=== PATIENT | female | born 2000 | race Caucasian/White ===

== ENCOUNTER 2021-11-17 10:27 | Emergency (ER) | payer OTHER ==
[2021-11-17 10:36] VITALS: RESP 18; TEMP 97.7
[2021-11-17] MEDS ORDERED: SODIUM CHLORIDE 0.9% 1,000 ML IV STA (11:06)
[2021-11-17] MEDS ORDERED: KETOROLAC 15 MG/ML 1 ML VIAL IVP STA (11:06)
--- NOTE | 2021-11-17 11:35 | ED ---
General Adult HPI - General Chief complaint: Back Pain/Injury Stated complaint: Back pain, possible kidney stone Time Seen by Provider: 11/17/21 10:46 Source: patient Mode of arrival: ambulatory Limitations: no limitations - History of Present Illness Initial comments: This 21-year-old female presents to the emergency department with left lower back pain that began 1.5 hours ago. Patient states pain came out of nowhere and is throbbing/sharp in nature. Patient states is better when sitting still and worse when she is moving around. Patient states around this time she also had some mild chills and sweats and felt like she had to urinate, however when she tried to go work she was unable to urinate because the back pain was so bad, she began experiencing burning and increase urgency when trying to urinate. Patient denies any this ever happening in her past. Patient states when moving around her pain as 10/10 when she sits still 6/10. Patient states is only located on the left lower side. Patient states she is supposed to start her menstrual cycle tomorrow and does experience some mild back pain with back, however this feels different. Patient does not believe she is at this time. Patient denies any fevers, urinary incontinence/retention, saddle anesthesia or other signs of cauda equina syndrome. Patient denies any trauma to the back which could've caused this left lower back pain. Patient denies any chest pain, short ness of breath, fever, abdominal pain, nausea, vomiting, headache, double/blurred vision, weakness, hemoptysis, hematuria, hematochezia. - Related Data Home Medications Medication Instructions Recorded Confirmed Citalopram Hydrobromide [CeleXA] 20 mg PO DAILY 11/17/21 11/17/21 Norgestimate-Ethinyl Estradiol 1 tab PO DAILY 11/17/21 11/17/21 [Sprintec 28 Day Tablet] Allergies Allergy/AdvReac Type Severity Reaction Status Date / Time No Known Allergies Allergy Verified 11/17/21 10:36 Review of Systems ROS Statement: Those systems with pertinent positive or pertinent negative responses have been documented in the HPI. ROS Other: All systems not noted in ROS Statement are negative. Past Medical History Past Medical History: No Reported History History of Any Multi-Drug Resistant Organisms: None Reported Past Surgical History: No Surgical Hx Reported Past Psychological History: No Psychological Hx Reported Smoking Status: Never smoker Past Alcohol Use History: None Reported Past Drug Use History: None Reported General Exam Limitations: no limitations General appearance: alert, in no apparent distress Head exam: Present: atraumatic, normocephalic, normal inspection Eye exam: Present: normal appearance, PERRL, EOMI. Absent: scleral icterus, conjunctival injection, periorbital swelling ENT exam: Present: normal exam, mucous membranes moist Respiratory exam: Present: normal lung sounds bilaterally. Absent: respiratory distress, wheezes, rales, rhonchi, stridor Cardiovascular Exam: Present: regular rate, normal rhythm, normal heart sounds. Absent: systolic murmur, diastolic murmur, rubs, gallop, clicks GI/Abdominal exam: Present: soft, normal bowel sounds. Absent: distended, tenderness, guarding, rebound, rigid Extremities exam: Present: normal inspection, full ROM, normal capillary refill. Absent: tenderness, pedal edema, joint swelling, calf tenderness Back exam: Present: normal inspection, full ROM (Extreme pain to the left side of her back when sitting up). Absent: CVA tenderness (R), CVA tenderness (L), vertebral tenderness Neurological exam: Present: alert, oriented X3, CN II-XII intact Psychiatric exam: Present: normal affect, normal mood Skin exam: Present: warm, dry, intact, normal color. Absent: rash Course Vital Signs 11/17/21 10:31 Temperature 97.7 F Pulse Rate 87 Respiratory 18 Rate Blood Pressure 125/76 O2 Sat by Pulse 99 Oximetry - Reevaluation(s) Reevaluation #1: 11/17/21 11:42 On reevaluation, patient states she is feeling very anxious due to having a IV p atient states her pain is well-controlled in her back pain is feeling much better, however she feels super anxious. 1 mg Ativan given. 11/17/21 12:12 On reevaluation after patient received Toradol, patient states her pain is significantly improved. After getting Ativan, patient states she's much less anxious 11/17/21 12:48 On reevaluation come patient states she is feeling good. Patient is anxious to get home and is wondering when she is going to be able to leave. 11/17/21 13:15 On evaluation, patient states she is still without any pain. Patient requesting to go home due to her having no symptoms. I did discuss the possibility of kidney stone or musculoskeletal related. Return parameters discussed. Patient agreed to plan. Medical Decision Making - Medical Decision Making This 21-year-old female presents to the emergency Department with left flank pain that began a few hours ago. Labs unremarkable. Urine unremarkable. CT wi thout contrast of abdomen and pelvis impression: 3 mm left lower pole nonobstructing renal calculus. No evidence of hydroureter bilaterally. No right-sided hydronephrosis. Urinary bladder is not distended. After receiving fluids and Toradol, patient states her flank pain has gone away completely. Patient denies any symptoms prior to discharge. I did discuss with patient the possibility of her pain being from a kidney stone or could be musculoskeletal related. Patient instructed to take Motrin as needed and directed for pain relief. Strict return precautions were discussed and patient instructed to return if back pain returns, patient gets fever or any urinary symptoms present health instructed patient to return if she had any bowel/bladder retention, saddle anesthesia or any cauda equina symptoms. Patient instructed to follow up with her primary care provider next 1-2 days, I did provide primary care provider information to the patient. Patient verbally agreed to plan. Patient sent home in stable condition. Case discussed with my attending, Dr. Palumbo. - Lab Data Result diagrams: 11/17/21 11:37 11/17/21 12:27 Lab Results 11/17/21 11/17/21 11/17/21 Range/Units 11:37 11:37 11:37 WBC 9.8 (3.8-10.6) k/uL RBC 4.88 (3.80-5.40) m/uL Hgb 13.8 (11.4-16.0) gm/dL Hct 42.5 (34.0-46.0) % MCV 87.0 (80.0-100.0) fL MCH 28.2 (25.0-35.0) pg MCHC 32.4 (31.0-37.0) g/dL RDW 13.7 (11.5-15.5) % Plt Count 284 (150-450) k/uL MPV 9.6 Neutrophils % 67 % Lymphocytes % 22 % Monocytes % 5 % Eosinophils % 3 % Basophils % 0 % Neutrophils # 6.5 (1.3-7.7) k/uL Lymphocytes # 2.2 (1.0-4.8) k/uL Monocytes # 0.5 (0-1.0) k/uL Eosinophils # 0.3 (0-0.7) k/uL Basophils # 0.0 (0-0.2) k/uL Sodium (137-145) mmol/L Potassium (3.5-5.1) mmol/L Chloride (98-107) mmol/L Carbon Dioxide (22-30) mmol/L Anion Gap mmol/L BUN (7-17) mg/dL Creatinine (0.52-1.04) mg/dL Est GFR (CKD-EPI)AfAm (>60 ml/min/1.73 sqM) Est GFR (CKD-EPI)NonAf (>60 ml/min/1.73 sqM) Glucose (74-99) mg/dL Plasma Lactic Acid Adan (0.7-2.0) mmol/L Calcium (8.4-10.2) mg/dL Total Bilirubin (0.2-1.3) mg/dL AST (14-36) U/L ALT (4-34) U/L Alkaline Phosphatase (38-126) U/L Total Protein (6.3-8.2) g/dL Albumin (3.5-5.0) g/dL Lipase (23-300) U/L Urine Color Colorless Urine Appearance Clear (Clear) Urine pH 6.5 (5.0-8.0) Ur Specific [place] 1.004 (1.001-1.035) Urine Protein Negative (Negative) Urine Glucose (UA) Negative (Negative) Urine Ketones Negative (Negative) Urine Blood Negative (Negative) Urine Nitrite Negative (Negative) Urine Bilirubin Negative (Negative) Urine Urobilinogen <2.0 (<2.0) mg/dL Ur Leukocyte Esterase Negative (Negative) Urine HCG, Qual Not Detected (Not Detectd) 11/17/21 11/17/21 Range/Units 11:37 12:27 WBC (3.8-10.6) k/uL RBC (3.80-5.40) m/uL Hgb (11.4-16.0) gm/dL Hct (34.0-46.0) % MCV (80.0-100.0) fL MCH (25.0-35.0) pg MCHC (31.0-37.0) g/dL RDW (11.5-15.5) % Plt Count (150-450) k/uL MPV Neutrophils % % Lymphocytes % % Monocytes % % Eosinophils % % Basophils % % Neutrophils # (1.3-7.7) k/uL Lymphocytes # (1.0-4.8) k/uL Monocytes # (0-1.0) k/uL Eosinophils # (0-0.7) k/uL Basophils # (0-0.2) k/uL Sodium 138 (137-145) mmol/L Potassium 3.9 (3.5-5.1) mmol/L Chloride 110 H (98-107) mmol/L Carbon Dioxide 20 L (22-30) mmol/L Anion Gap 8 mmol/L BUN 9 (7-17) mg/dL Creatinine 0.69 (0.52-1.04) mg/dL Est GFR (CKD-EPI)AfAm >90 (>60 ml/min/1.73 sqM) Est GFR (CKD-EPI)NonAf >90 (>60 ml/min/1.73 sqM) Glucose 92 (74-99) mg/dL Plasma Lactic Acid Adan 1.8 (0.7-2.0) mmol/L Calcium 9.0 (8.4-10.2) mg/dL Total Bilirubin 0.4 (0.2-1.3) mg/dL AST 29 (14-36) U/L ALT 23 (4-34) U/L Alkaline Phosphatase 66 (38-126) U/L Total Protein 7.3 (6.3-8.2) g/dL Albumin 4.3 (3.5-5.0) g/dL Lipase 105 (23-300) U/L Urine Color Urine Appearance (Clear) Urine pH (5.0-8.0) Ur Specific [place] (1.001-1.035) Urine Protein (Negative) Urine Glucose (UA) (Negative) Urine Ketones (Negative) Urine Blood (Negative) Urine Nitrite (Negative) Urine Bilirubin (Negative) Urine Urobilinogen (<2.0) mg/dL Ur Leukocyte Esterase (Negative) Urine HCG, Qual (Not Detectd) Disposition Clinical Impression: Nephrolithiasis, Left flank pain Disposition: HOME SELF-CARE Condition: Stable Instructions (If sedation given, give patient instructions): Kidney Stones (ED) Additional Instructions: Please return to the emergency department with any new, worsening, or concerning symptoms. Follow-up with your primary care provider in next 1-2 days. Can take Motrin for pain relief as directed. Is patient prescribed a controlled substance at d/c from ED?: No Referrals: None,Stated [Primary Care Provider] - 1-2 days Gurinder Joy [STAFF PHYSICIAN] - 1-2 days Pooja Gonzalez NPC [STAFF PHYSICIAN] - 1-2 days Time of Disposition: 13:21
[2021-11-17] MEDS ORDERED: LORazepam 2 MG/ML INJ IV STA (11:47)
[2021-11-17 11:55] LABS: Basophils % (A) 0 %; Eosinophils # (A) 0.3 k/uL (0-0.7); Eosinophils % (A) 3 %; HCT 42.5 % (34.0-46.0); HGB 13.8 gm/dL (11.4-16.0); Lymphocytes # (A) 2.2 k/uL (1.0-4.8); Lymphocytes % (A) 22 %; MCH 28.2 pg (25.0-35.0); MCHC 32.4 g/dL (31.0-37.0); Mean Platelet Volume 9.6; Monocytes # (A) 0.5 k/uL (0-1.0); Monocytes % (A) 5 %; Neutrophils # (A) 6.5 k/uL (1.3-7.7); Neutrophils % (A) 67 %; Platelet Count 284 k/uL (150-450); RBC 4.88 m/uL (3.80-5.40); RDW 13.7 % (11.5-15.5); WBC 9.8 k/uL (3.8-10.6)
[2021-11-17 12:10] LABS: Appearance,Urine Clear (Clear); Bilirubin,Urine Negative (Negative); Blood,Urine Negative (Negative); Color,Urine Colorless; Glucose,Urine (UA) Negative (Negative); Ketones,Urine Negative (Negative); Leukocyte Esterase,Urine Negative (Negative); Nitrite,Urine Negative (Negative); PH, Urine 6.5 (5.0-8.0); Protein,Urine Negative (Negative); Specific Gravity,Urine 1.004 (1.001-1.035); Urobilinogen,Urine <2.0 mg/dL (<2.0)
--- NOTE | 2021-11-17 12:46 | CT ---
EXAMINATION TYPE: CT abdomen pelvis wo con DATE OF EXAM: 11/17/2021 COMPARISON: None available HISTORY: Left side flank pain. CT DLP: 913.4 mGycm Automated exposure control for dose reduction was used. TECHNIQUE: Helical acquisition of images was performed from the lung bases through the pelvis. No IV contrast administration. FINDINGS: LUNG BASES: 6 mm nodule is seen in the left lower lobe. Recommend follow-up CT scan in 3 months for r eassessment. LIVER/GB: No significant abnormality is appreciated. PANCREAS: Partially obscured by artifacts, grossly unremarkable. SPLEEN: No significant abnormality is seen. ADRENALS: No significant abnormality is seen. KIDNEYS: 3 mm left lower pole nonobstructing renal calculus. Suspected left extrarenal pelvis versus mildly dilated left renal collecting system. No evidence of hydroureter bilaterally. No right-sided h ydronephrosis. No definite radiodense calculi at the expected course of the ureters. The urinary blad radha is not distended. FREE AIR: No free air is visualized RETROPERITONEAL ADENOPATHY: None visualized REPRODUCTIVE ORGANS: No significant abnormality is seen PELVIC ADENOPATHY: None visualized. OSSEOUS STRUCTURES: No aggressive bone lesion. BOWEL: No significant abnormality is seen. OTHER: No sizable ascites. IMPRESSION: 3 mm left renal nonobstructing calculus. Left extrarenal pelvis versus mildly dilated left renal rizwan ecting system. No hydroureter bilaterally. No definite radiodense calculi at the expected course of t he ureters. A form of left pelviureteric junction obstruction cannot be excluded by this CT scan. If clinically suspected, further renal scintigraphy can be considered. Other incidental findings as desc ribed above.
[2021-11-17 13:10] LABS: ALT 23 U/L (4-34); AST 29 U/L (14-36); African American GFR (CKD) >90 (>60 ml/min/1.73 sqM); Albumin 4.3 g/dL (3.5-5.0); Alkaline Phosphatase 66 U/L (38-126); Anion Gap 8 mmol/L; Blood Urea Nitrogen 9 mg/dL (7-17); Carbon Dioxide 20 mmol/L (22-30); Chloride 110 mmol/L (98-107); Glucose 92 mg/dL (74-99); Lipase 105 U/L (23-300); Non-African American GFR(CKD) >90 (>60 ml/min/1.73 sqM); Potassium 3.9 mmol/L (3.5-5.1); Sodium 138 mmol/L (137-145); Total Bilirubin 0.4 mg/dL (0.2-1.3); Total Protein 7.3 g/dL (6.3-8.2)
[2021-11-17 13:50] VITALS: BP 128/71; PULSE 89
== END 2021-11-17 13:50 | disposition home or self-care (01) ==
LOC: EC 10:27
DX: N20.0 Calculus of kidney (principal)
CPT/HCPCS: 36415; 80053; 83605; 83690; 85025; 81003; 81025; 74176; 99284; 96374; 96375; 96361; J2060; J1885

== ENCOUNTER 2022-01-12 15:40 | Emergency (ER) | payer OTHER ==
[2022-01-12 15:51] VITALS: RESP 16
--- NOTE | 2022-01-12 16:37 | US ---
EXAMINATION TYPE: US venous doppler duplex LE RT DATE OF EXAM: 01/12/2022 4:29 PM COMPARISON: NONE CLINICAL HISTORY: calf pain . SIDE PERFORMED: Right TECHNIQUE: The lower extremity deep venous system is examined utilizing real time linear array sonog christopher with graded compression, doppler sonography and color-flow sonography. VESSELS IMAGED: Common Femoral Vein Deep Femoral Vein Greater Saphenous Vein * Femoral Vein Popliteal Vein Small Saphenous Vein * Proximal Calf Veins (* superficial vessels) Right Leg: Visualized common femoral common femoral greater saphenous, popliteal and posterior tibia l veins demonstrate appropriate color Doppler flow compressibility and venous waveforms. Left Leg: Limited, common femoral vein images, Doppler flow. IMPRESSION: No evidence of DVT of the right lower extremity
--- NOTE | 2022-01-12 16:47 | XR ---
EXAMINATION TYPE: XR chest 1V DATE OF EXAM: 01/12/2022 4:38 PM COMPARISON: none TECHNIQUE: XR chest 1V Frontal view of the chest. CLINICAL INDICATION:Female, 21 years old with history of chest pain; FINDINGS: Lungs/Pleura: There is no evidence of pleural effusion, focal consolidation, or pneumothorax. Pulmonary vascularity: Unremarkable. Heart/mediastinum: Cardiomediastinal silhouette is unremarkable. Musculoskeletal: No acute osseous pathology. IMPRESSION: No acute cardiopulmonary disease/process.
[2022-01-12] MEDS ORDERED: dexAMETHasone 4 MG TAB PO STA (16:50)
--- NOTE | 2022-01-12 16:53 | ED ---
General Adult HPI - General Chief complaint: Extremity Problem,Nontraumatic Stated complaint: R leg pain Time Seen by Provider: 01/12/22 16:32 Source: patient Mode of arrival: ambulatory Limitations: no limitations - History of Present Illness Initial comments: Dictation was produced using [employer] dictation software. please excuse any grammatical, word or spelling errors. Chief Complaint: 21-year-old female sent in from urgent care for concerns of lower extremity blood clot History of Present Illness: 21-year-old female she's been having cold symptoms for the last 3-4 days. She went to the urgent care to be evaluated. So that she had some ache in her right calf since the emergency department for concerns of blood clot. Patient knows that she doesn't have a blood clot was sent here for an ultrasound. Patient has no history of blood clot. She takes oral contraceptive pills. Patient taken out" test that was negative. Patient worried that she has bronchitis. The ROS documented in this emergency department record has been reviewed and confirmed by me. Those systems with pertinent positive or negative responses have been documented in the HPI. All other systems are other negative and/or noncontributory. PHYSICAL EXAM: General Impression: Alert and oriented x3, not in acute distress HEENT: Normocephalic atraumatic, extra-ocular movements intact, pupils equal and reactive to light bilaterally, mucous membranes moist. Cardiovascular: Heart regular rate and rhythm Chest: Able to complete full sentences, no retractions, no tachypnea Abdomen: abdomen soft, non-tender, non-distended, no organomegaly Musculoskeletal: Pulses present and equal in all extremities, no peripheral edema Motor: no focal deficits noted Neurological: CN II-XII grossly intact, no focal motor or sensory deficits noted Skin: Intact with no visualized rashes Psych: Normal affect and mood ED course: 21-year-old female presents emergency department for URI symptoms. Signs upon arrival are within acceptable limits. Chest x-rays negative. Right lower extremity ultrasound is negative. Patient is coronal virus positive. She does not meet criteria for monoclonal antibody infusion. Patient is not hypoxic or showing any signs of respiratory distress. Patient discharged told to recover at home. She is given 10 mg of oral Decadron and refill on her albuterol inhaler. - Related Data Home Medications Medication Instructions Recorded Confirmed Citalopram Hydrobromide [CeleXA] 20 mg PO DAILY 11/17/21 11/17/21 Norgestimate-Ethinyl Estradiol 1 tab PO DAILY 11/17/21 11/17/21 [Sprintec 28 Day Tablet] Previous Rx's Medication Instructions Recorded Albuterol Sulfate [Proair Hfa] 1 - 2 puff INHALATION Q6HR PRN 01/12/22 #8.5 gm Allergies Allergy/AdvReac Type Severity Reaction Status Date / Time No Known Allergies Allergy Verified 11/17/21 10:36 Review of Systems ROS Statement: Those systems with pertinent positive or pertinent negative responses have been documented in the HPI. ROS Other: All systems not noted in ROS Statement are negative. Past Medical History Past Medical History: No Reported History History of Any Multi-Drug Resistant Organisms: None Reported Past Surgical History: No Surgical Hx Reported Past Psychological History: Anxiety, Depression Smoking Status: Never smoker Past Alcohol Use History: None Reported Past Drug Use History: None Reported General Exam Limitations: no limitations Course Vital Signs 01/12/22 15:48 Temperature 98 F Pulse Rate 89 Respiratory 16 Rate Blood Pressure 133/83 O2 Sat by Pulse 97 Oximetry Medical Decision Making - Lab Data Lab Results 01/12/22 01/12/22 Range/Units 16:00 16:00 Coronavirus (PCR) Detected A (Not Detectd) Influenza Type A RNA Not Detected (Not Detectd) Influenza Type B (PCR) Not Detected (Not Detectd) Disposition Clinical Impression: Coronavirus infection Disposition: HOME SELF-CARE Condition: Good Instructions (If sedation given, give patient instructions): Coronavirus Disease 2019 (COVID-19) Prescriptions: Albuterol Sulfate [Proair Hfa] 1 - 2 puff INHALATION Q6HR PRN #8.5 gm PRN Reason: Dyspnea Is patient prescribed a controlled substance at d/c from ED?: No Referrals: None,Stated [Primary Care Provider] - 1-2 days
[2022-01-12 17:14] VITALS: BP 132/78; PULSE 78; TEMP 98.2
== END 2022-01-12 17:13 | disposition home or self-care (01) ==
LOC: EC 15:40
DX: U07.1 COVID-19 (principal)
CPT/HCPCS: 87502; 87635; 71045; 93971; 99284; J8540

== ENCOUNTER → 2022-03-30 | Outpatient (CLI) | payer OTHER ==
--- NOTE | 2022-03-30 08:40 | CT ---
EXAMINATION TYPE: CT chest wo con CT DLP: 627 mGycm, Automated exposure control for dose reduction was used. DATE OF EXAM: 03/30/2022 7:19 AM COMPARISON: None CLINICAL INDICATION:Female, 21 years old with history of R91.1 SOLITARY PULMONARY NODULE; Solitary pu lmonary nodule. TECHNIQUE: Multiple axial images were obtained through the chest. Contrast used: none Oral contrast used: none. FINDINGS: LUNGS/ PLEURA: No evidence of focal consolidation, pneumothorax or pleural effusion. No pulmonary nod ules are visualized. There is a tubular structure within the left lower lobe which appears connect t o both the pulmonary artery and pulmonary vein. Areas best appreciated on sagittal imaging series 7 i mage 43 through 45. No suspicious pulmonary nodules are identified. AIRWAY: Patent and unremarkable. HEART: Size within normal limits. MEDIASTINUM: No gross evidence of adenopathy. VASCULATURE: No aortic aneurysm. MUSCULOSKELETAL: No acute osseous abnormalities SOFT TISSUES/LYMPH NODES: Unremarkable. LOWER NECK: No significant findings. UPPER ABDOMEN: No significant findings. IMPRESSION: 1. 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 2. No suspicious pulmonary nodules.
== END | disposition home or self-care (01) ==
LOC: RADCTMAIN 06:38
PROVIDERS: ATTEND Family Medicine
DX: R91.1 Solitary pulmonary nodule (principal)
CPT/HCPCS: 71250

== ENCOUNTER 2023-01-06 14:39 | Emergency (ER) | payer OTHER ==
[2023-01-06 14:53] VITALS: TEMP 98.1
--- NOTE | 2023-01-06 15:35 | ED ---
General Adult HPI - General Chief complaint: Anxiety Stated complaint: anxiety Time Seen by Provider: 01/06/23 15:35 Source: patient Mode of arrival: ambulatory Limitations: no limitations - History of Present Illness Initial comments: Patient presents to the ED stating that she feels anxious and she just wants reassurance that her symptoms are due to anxiety. Patient states that she has a history of anxiety for which she has been taking Celexa for years. Patient states that her PCP started her on BuSpar about a month ago, and she states she was experiencing side effects from the BuSpar, so she discontinued use of it 6 days ago and she states that she has been feeling very anxious since then. Patient denies having any other symptoms besides anxiety. Patient denies having any pain, fever or chills, headache, focal neuro deficit, chest pain or pressure, dyspnea, cough or cold symptoms, palpitations, dizziness, abdominal pain, nausea/vomiting/diarrhea, bloody or melanotic stool, dysuria or urinary symptoms, or leg or calf swelling or pain. Patient denies drug or alcohol abuse. Patient denies suicidal ideations, homicidal ideations or h allucinations. Patient denies having any other symptoms or complaints. Patient states that she does not want EPS/psychiatric evaluation, and she does not want any treatment for her anxiety. - Related Data Home Medications Medication Instructions Recorded Confirmed Citalopram Hydrobromide [CeleXA] 20 mg PO DAILY 11/17/21 11/17/21 norgestimate-ethinyl estradioL 1 tab PO DAILY 11/17/21 11/17/21 [Sprintec 28 Day Tablet] Previous Rx's Medication Instructions Recorded Albuterol Sulfate [Proair Hfa] 1 - 2 puff INHALATION Q6HR PRN 01/12/22 #8.5 gm Allergies Allergy/AdvReac Type Severity Reaction Status Date / Time No Known Allergies Allergy Verified 01/06/23 14:53 Review of Systems ROS Statement: Those systems with pertinent positive or pertinent negative responses have been documented in the HPI. ROS Other: All systems not noted in ROS Statement are negative. Past Medical History Past Medical History: No Reported History History of Any Multi-Drug Resistant Organisms: None Reported Past Surgical History: No Surgical Hx Reported Past Psychological History: Anxiety, Depression Smoking Status: Never smoker Past Alcohol Use History: None Reported Past Drug Use History: None Reported General Exam Limitations: no limitations General appearance: alert, anxious Head exam: Present: atraumatic, normocephalic Eye exam: Present: normal appearance, PERRL, EOMI ENT exam: Present: mucous membranes moist Neck exam: Present: other (Trachea is in midline) Respiratory exam: Present: normal lung sounds bilaterally. Absent: respiratory distress, wheezes, rales, rhonchi, stridor Cardiovascular Exam: Present: normal rhythm, tachycardia, normal heart sounds, other (Normal radial pulses bilaterally) GI/Abdominal exam: Present: soft. Absent: distended, tenderness, guarding Extremities exam: Present: other (Negative Homans sign bilaterally). Absent: tenderness, pedal edema, calf tenderness Neurological exam: Present: alert, oriented X3, CN II-XII intact. Absent: motor sensory deficit Psychiatric exam: Present: anxious Skin exam: Present: warm, dry, intact, normal color Course Vital Signs 01/06/23 14:51 Temperature 98.1 F Pulse Rate 115 H Respiratory 20 Rate Blood Pressure 147/82 O2 Sat by Pulse 98 Oximetry Medical Decision Making - Medical Decision Making Was pt. sent in by a medical professional or institution (, PA, ACTUARIAL SCIENCE TEACHER, urgent care, hospital, or retirement...) When possible be specific @ -No Did you speak to anyone other than the patient for history (EMS, parent, family, police, friend...)? What history was obtained from this source @ -No Did you review nursing and triage notes (agree or disagree)? Why? @ -I reviewed and agree with nursing and triage notes Were old charts reviewed (outside hosp., previous admission, EMS record, old EKG, old radiological studies, urgent care reports/EKG's, retirement records)? Report findings @ -No old charts were reviewed Differential Diagnosis (chest pain, altered mental status, abdominal pain women, abdominal pain men, vaginal bleeding, weakness, fever, dyspnea, syncope, headache, dizziness, GI bleed, back pain, seizure, CVA, palpatations, mental health, musculoskeletal)? @ -Anxiety, medication reaction, medication withdrawal, panic disorder, depression, psychiatric disease, drug abuse, alcohol abuse EKG interpreted by me (3pts min.). @ -None done X-rays interpreted by me (1pt min.). @ -None done CT interpreted by me (1pt min.). @ -None done U/S interpreted by me (1pt. min.). @ -None done What testing was considered but not performed or refused? (CT, X-rays, U/S, labs)? Why? @ -None What meds were considered but not given or refused? Why? @ -None Did you discuss the management of the patient with other professionals (professionals i.e. Dr., PA, ACTUARIAL SCIENCE TEACHER, lab, RT, psych nurse, social media marketing analyst, moisture meter operator, teacher, information security officer, counseling case manager)? Give summary @ -No Was smoking cessation discussed for >3mins.? @ -No Was critical care preformed (if so, how long)? @ -No Were there social determinants of health that impacted care today? How? (Homelessness, low income, unemployed, alcoholism, drug addiction, transportation, low edu. Level, literacy, decrease access to med. care, fpc, rehab)? @ -No Was there de-escalation of care discussed even if they declined (Discuss DNR or withdrawal of care, Hospice)? DNR status @ -No What co-morbidities impacted this encounter? (DM, HTN, Smoking, COPD, CAD, Cancer, CVA, ARF, Chemo, Hep., AIDS, mental health diagnosis, sleep apnea, morbid obesity)? @ -None Was patient admitted / discharged? Hospital course, mention meds given and route, prescriptions, significant lab abnormalities, going to OR and other pertinent info. @ -Patient only reports having symptoms of anxiety since discontinuing use of the BuSpar that she was taking about 6 days ago. Patient denies having any other symptoms or complaints. Patient is breathing comfortably in the ED with a normal room air oxygen saturation. Patient is mildly tachycardic, but I suspect that it is likely due to her anxiety. I suspect that the patient's symptoms are likely due to anxiety, and I do not suspect an emergent medical condition at this time. I have discussed this with the patient, and she feels comfortable being discharged home at this time. Patient was counseled about anxiety, and she was instructed to follow up closely with her primary care provider. Patient feels comfortable with this plan. Undiagnosed new problem with uncertain prognosis? @ -No Drug Therapy requiring intensive monitoring for toxicity (Heparin, Nitro, Insulin, Cardizem)? @ -No Were any procedures done? @ -No Diagnosis/symptom? @ -Anxiety Acute, or Chronic, or Acute on Chronic? @ -Acute on chronic Uncomplicated (without systemic symptoms) or Complicated (systemic symptoms)? @ -Uncomplicated Side effects of treatment? @ -No Exacerbation, Progression, or Severe Exacerbation? @ -No Poses a threat to life or bodily function? How? (Chest pain, [place], PR, pneumonia, PE, COPD, DKA, ARF, appy, cholecystitis, CVA, Diverticulitis, Homicidal, Suicidal, threat to staff... and all critical care pts) @ -No Disposition Clinical Impression: Anxiety Disposition: HOME SELF-CARE Condition: Stable Instructions (If sedation given, give patient instructions): Generalized Anxiety Disorder (ED) Additional Instructions: Return to the ER immediately should you develop thoughts of hurting yourself or others, any significant pain, chest pain, shortness of breath, feeling dizzy or faint, or new or worsening symptoms. Follow up closely with your primary care provider. Is patient prescribed a controlled substance at d/c from ED?: No Referrals: Pooja Matson MD [Primary Care Provider] - 1-2 days Time of Disposition: 15:56
[2023-01-06 16:06] VITALS: BP 124/84; PULSE 100; RESP 19
== END 2023-01-06 16:06 | disposition home or self-care (01) ==
LOC: EC 14:39
DX: F41.9 Anxiety disorder, unspecified (principal); F32.A Depression, unspecified; Z79.899 Other long term (current) drug therapy
CPT/HCPCS: 99283